=== PATIENT | female | born 1945 | race Caucasian/White ===

== ENCOUNTER 2019-01-05 20:01 | Emergency (ER) | payer OTHER ==
[~2019-01-05] VITALS: Ht 152.4 cm; Wt 65.8 kg
[~2019-01-05 20:01] MED LIST: AMBIEN; AMBIEN 10 MG TA10 MG; AMBIEN 10 MG TA10 MG PO; AMLODIPINE BESYL5 MG PO; ATORVASTATIN CA80 MG PO; AVELOX 400 MG400 MG; CALCIUM 500 +1 EAC5 PO; CLONAZEPAM 1 MG1 M1 PO; CLONAZEPAM1 GM; CYCLOBENZAPRINE10 MG; CYCLOBENZAPRINE10 MG PO; DOXEPIN 10 MG C10 M1 PO; DOXEPIN HCL100 MG PO; EFFEXOR; EFFEXOR 5050 MG/1 T1 PO; EFFEXOR100 MG; EFFEXOR100 MG PO; FENTANYL PA50 MCG/HR TOP; FISH OIL 1,001000 M2 PO; HYDROCHLOROTHIA25 M2 PO; HYDROCODON-ACE1 EAC5; HYDROCODON-ACE1 EAC5 PO; HYDROCODON-ACE1 EAC8 PO; KLOR-CON 1010 MEQ PO; LINZESS290 MCG PO; LIORESAL 10 MG10 MG PO; LIPITOR10 MG PO; LOVASTATIN; MACROBID 100 M100 M1 PO; NICODERM CQ1 EAC1 TOP; NICOTINE TRANSD21 M1; NICOTINE TRANSD21 M1 TOP; NORCO 5-325 TA1 EACH PO; NORFLEX100 MG PO; OXYCODONE HCL5 M1; OXYCONTIN CR 1010 MG; OXYCONTIN10 M1 PO; OXYCONTIN20 M1 PO; PERCOCET 5-3251 EACH PO; REMERON30 M1 PO; REMERON30 MG; SEROQUEL 50 MG50 MG PO; SEROQUEL XR150 MG PO; SUPER B COMPLE150 MG PO; SYNTHROID100 MCG PO; TRAMADOL 50 MG50 MG; TUMS E.S.750 MG PO; VALIUM10 MG PO; VALIUM5 MG PO; VITAMIN D3400 UNIT PO; [UNRECOGNIZED DRUG - REMARK]
[2019-01-05] MEDS ORDERED: CELEXA10 MG PO (20:12)
[2019-01-05 20:48] LABS: ABSOLUTE EOSINOPHILS 0.6 thou/uL (0.0-0.7); ABSOLUTE LYMPHOCYTES 2.3 thou/uL (0.8-5.3); ABSOLUTE MONOCYTES 0.7 thou/uL (0.0-1.2); ABSOLUTE NEUTROPHILS 4.9 thou/uL (1.6-8.1); BASOPHILS 0.5 %; EOSINOPHILS 7.3 %; HEMATOCRIT 35.9 % (37.0-47.0); LYMPHOCYTES 27.1 %; MCH 31.3 pg (26.0-34.0); MCHC 33.5 g/dL (28.0-37.0); MCV 93.5 fL (80.0-100.0); MONOCYTES 7.8 %; MPV 8.3 fl. (7.2-11.1); NUCLEATED RBCS 0 /100WBC; PLATELET COUNT* 298 thou/uL (150-400); POLYS 57.3 %; RBC 3.85 mil/uL (4.20-5.00); WBC 8.5 thou/uL (4.0-11.0)
[2019-01-05 21:00] LABS: APTT 26.8 Seconds (25.0-31.3); INR 0.9; PROTIME 9.7 Seconds (9.20-11.50)
[2019-01-05 21:07] LABS: ALBUMIN 3.7 g/dL (3.4-5.0); CREATININE 1.2 mg/dL (0.6-1.3); POTASSIUM 3.9 mmol/L (3.5-5.1); TOTAL BILIRUBIN 0.5 mg/dL (<0.1-1.0); TOTAL PROTEIN 7.6 g/dL (6.4-8.2)
[2019-01-05 22:00] VITALS: BP 194/91
== END 2019-01-05 22:00 | disposition short-term general hospital (02) ==
LOC: M.ERS 20:01
PROVIDERS: Family Medicine
DX: S03.03XA Dislocation of jaw, bilateral, initial encounter (principal); S02.611A Fracture of condylar process of right mandible, initial encounter for closed fracture; S02.612A Fracture of condylar process of left mandible, initial encounter for closed fracture; S01.81XA Laceration without foreign body of other part of head, initial encounter; Z88.0 Allergy status to penicillin; Z88.8 Allergy status to other drugs, medicaments and biological substances; Z98.890 Other specified postprocedural states; Z90.81 Acquired absence of spleen; F41.9 Anxiety disorder, unspecified; F32.9 Major depressive disorder, single episode, unspecified; E78.00 Pure hypercholesterolemia, unspecified; Z90.89 Acquired absence of other organs; Z85.528 Personal history of other malignant neoplasm of kidney; W18.39XA Other fall on same level, initial encounter; Y92.89 Other specified places as the place of occurrence of the external cause; Y93.89 Activity, other specified; Y99.8 Other external cause status